=== PATIENT | male | born 1970 ===

== ENCOUNTER 2018-05-09 10:11 | Emergency (ER) | payer SELFPAY ==
[2018-05-09] MEDS ORDERED: HYDROcodone/Acetaminophen 10/325 mg Tablet ONE (10:26)
--- NOTE | 2018-05-09 10:36 | RAD ---
2 VIEW CHEST: Date: 05/09/18 HISTORY: Injury with chest pain. FINDINGS: The lung bernabe are clear. Heart and mediastinum unremarkable. Osseous structures unremarkable. IMPRESSION: No acute abnormality. POS: [facility]
[2018-05-09] MEDS ORDERED: Adacel (T-DAP) 0.5 ML VIAL ONE (10:38)
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
[2018-05-09] MEDS ORDERED: Ibuprofen 800 MG TAB ONE (11:00)
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
== END 2018-05-09 11:17 | disposition home or self-care (01) ==
LOC: BURERS 10:11
DX: S06.0X9A Concussion with loss of consciousness of unspecified duration, initial encounter (principal); S21.111A Laceration without foreign body of right front wall of thorax without penetration into thoracic cavity, initial encounter; S50.02XA Contusion of left elbow, initial encounter; S00.83XA Contusion of other part of head, initial encounter; E78.5 Hyperlipidemia, unspecified; F17.210 Nicotine dependence, cigarettes, uncomplicated; Z79.899 Other long term (current) drug therapy; W55.22XA Struck by cow, initial encounter
CPT/HCPCS: 70450; 70486; 71046; 90471; 90715